=== PATIENT | male | born 1995 | race Caucasian/White ===

== ENCOUNTER 2022-12-29 07:38 | Emergency (ER) | payer SELFPAY ==
[2022-12-29] MEDS ORDERED: HYDROmorphone 1 MG/ML Syringe IM ONE (08:07)
[2022-12-29] MEDS ORDERED: Diphtheria,Pertussis(Acell),Tetanus Vaccine 0.5 ML Syringe IM ONE (08:07)
[2022-12-29] MEDS ORDERED: Lidocaine 1% 10 ML MDV INJECT ONE (08:07)
[2022-12-29] MEDS ORDERED: ceFAZolin 2 GM in Sodium Chloride 0.9% 50 ML IV ONE (09:18)
[2022-12-29] MEDS ORDERED: Sodium Chloride 0.9% 10 ML Syringe FLUSH PRN (09:18)
== END 2022-12-29 10:45 | disposition home or self-care (01) ==
LOC: JD.ED 07:38
DX: S82.091B Other fracture of right patella, initial encounter for open fracture type I or II (principal); Z23 Encounter for immunization; W00.0XXA Fall on same level due to ice and snow, initial encounter
CPT/HCPCS: 12002; 73564; 90471; 90715; 96365; 96372; 99283; J0690; J1170; J3490; 99284

== ENCOUNTER 2024-12-19 14:23 | Emergency (ER) | payer SELFPAY ==
[2024-12-19] MEDS: Iopamidol 612 MG/ML 100 ML Bottle IVPUSH ONE (15:42)
[2024-12-19] MEDS: Sodium Chloride 0.9% 10 ML Syringe FLUSH ONE (15:43)
[2024-12-19 15:51] LABS: BASOPHILS PERCENT AUTO 0.5 % (0.0-1.0); EOSINOPHILS ABSOLUTE AUTO 0.1 K/mm3 (0.0-0.4); EOSINOPHILS PERCENT AUTO 1.5 % (0.0-6.0); HEMATOCRIT 41.4 % (42.0-52.0); HEMOGLOBIN 14.4 gm/dl (14.0-18.0); IMMATURE GRAN ABSOLUTE AUTO 0.03 K/mm3 (0.00-0.05); IMMATURE GRAN PERCENT AUTO 0.4 % (0.0-0.4); LYMPHOCYTES ABSOLUTE AUTO 2.2 K/mm3 (1.0-4.8); LYMPHOCYTES PERCENT AUTO 27.7 % (24.0-44.0); MEAN CORPUSCULAR HGB CONC 34.8 g/dl (32.0-36.0); MEAN CORPUSCULAR VOLUME 83.5 fl (83.0-99.0); MEAN PLATELET VOLUME 10.7 fl (9.4-12.4); MONOCYTES ABSOLUTE AUTO 0.7 K/mm3 (0.0-0.8); MONOCYTES PERCENT AUTO 8.2 % (0.0-8.0); NEUTROPHILS ABSOLUTE AUTO 4.9 K/mm3 (1.8-7.7); NEUTROPHILS PERCENT AUTO 61.7 % (41.0-71.0); PLATELET COUNT,PLT 248 K/mm3 (150-400); RED BLOOD CELL COUNT 4.96 M/mm3 (4.52-5.90)
[2024-12-19 15:52] LABS: APPEARANCE,URINE CLEAR (Clear); BILIRUBIN,URINE NEGATIVE (Negative); COLOR,URINE YELLOW (Yellow); GLUCOSE,URINE NEGATIVE (Negative); KETONES,URINE NEGATIVE (Negative); LEUKOCYTE ESTERASE,URINE NEGATIVE (Negative); NITRITE,URINE NEGATIVE (Negative); OCCULT BLOOD,URINE NEGATIVE (Negative); PH,URINE 6.5 (5.0-8.0); PROTEIN,URINE NEGATIVE (Negative); UROBILINOGEN,URINE 0.2 (0.2-1.0)
[2024-12-19] MEDS: Sodium Chloride 0.9% 1,000 ML IV STA (16:00)
[2024-12-19] MEDS: Ondansetron 4 MG/2 ML SDV IVPUSH ONE (16:00)
[2024-12-19] MEDS: HYDROmorphone 0.5 MG/0.5 ML Syringe IVPUSH ONE (16:00)
[2024-12-19 16:01] LABS: RBC,URINE NOT SEEN /hpf (0-5); SQUAMOUS EPITHELIAL CELLS,UR 0-5 /hpf (0-5); WBC,URINE NOT SEEN /hpf (0-5)
[2024-12-19] MEDS: Sodium Chloride 0.9% 10 ML Syringe FLUSH PRN (16:01)
[2024-12-19 16:02] LABS: BACTERIA,URINE RARE /hpf (FEW); MUCUS,URINE NOT SEEN /hpf (FEW)
[2024-12-19 16:09] LABS: ALBUMIN 3.6 g/dl (3.4-5.0); ANION GAP 14.6 (5-15); BILIRUBIN TOTAL 0.4 mg/dL (0.2-1.0); BUN/CREATININE RATIO 9.1 (14-18); CALCIUM 8.8 mg/dL (8.5-10.1); CREATININE 1.1 mg/dL (0.7-1.3); EST CRCL DRUG DOSING (CG) 93.47 mL/min; POTASSIUM,K 3.6 mEq/L (3.5-5.1); PROTEIN TOTAL,TP 7.1 g/dl (6.4-8.2)
== END 2024-12-19 18:01 | disposition home or self-care (01) ==
LOC: JD.ED 14:23
DX: K52.9 Noninfective gastroenteritis and colitis, unspecified (principal); Z79.899 Other long term (current) drug therapy
CPT/HCPCS: 36415; 74177; 80053; 81001; 83690; 85025; 87045; 87046; 87899; 96361; 96374; 96375; 99284; J2405; J7030; Q9967

== ENCOUNTER 2025-02-13 19:12 | Emergency (ER) | payer BC ==
[2025-02-13] MEDS: Lidocaine 1% 10 ML MDV INJECT ONE (22:51)
== END 2025-02-13 22:55 | disposition home or self-care (01) ==
LOC: JD.ED 19:12
DX: S41.111A Laceration without foreign body of right upper arm, initial encounter (principal); Z79.899 Other long term (current) drug therapy; W25.XXXA Contact with sharp glass, initial encounter; Y93.89 Activity, other specified
CPT/HCPCS: 12001; 99282; J2003